=== PATIENT | female | born 1960 | race Caucasian/White ===

== ENCOUNTER 2017-04-25 18:54 | Emergency (ER) | payer BC ==
--- NOTE | 2017-04-25 19:15 | UC ---
Upper Extremity HPI - HPI Summary HPI Summary: 56 year female presents with complains of left arm swelling. I will send her to the ER to rule out PE. Yoselin called [facility] [place]. - History of Current Complaint Chief Complaint: UCUpperExtremity Stated Complaint: ARM INJURY Time Seen by Provider: 04/25/17 19:11 - Allergies/Home Medications Allergies/Adverse Reactions: Allergies Allergy/AdvReac Type Severity Reaction Status Date / Time Cephalexin [From Keflex] Allergy Unknown Unknown Verified 04/25/17 20:39 Reaction Details Penicillins Allergy Unknown Unknown Verified 04/25/17 20:39 Reaction Details enviromental Allergy Eyes Uncoded 04/25/17 20:39 Itchy/Swollen/Red/Watery PMH/Surg Hx/FS Hx/Imm Hx - Surgical History Surgical History: Yes Surgery Procedure, Year, and Place: TUBAL LIGATION - Family History Known Family History: Positive: Unknown, Other - brother - ceringomyeloma Negative: Cardiac Disease - /, Hypertension Family History: brother with Chiari MAlformation - Social History Alcohol Use: Occasionally Substance Use Type: None Substance Use Comment - Amount & Last Used: oxycodone Smoking Status (MU): Former Smoker Type: Cigarettes Amount Used/How Often: quit 15 years ago When Did the Patient Quit Smoking/Using Tobacco: 2000 Review of Systems Constitutional: Negative Skin: Negative Eyes: Negative ENT: Negative Respiratory: Negative Cardiovascular: Negative Gastrointestinal: Negative Genitourinary: Negative Motor: Negative Neurovascular: Negative Musculoskeletal: Other: - LEFT ARM SWELLING Neurological: Negative Psychological: Negative All Other Systems Reviewed And Are Negative: Yes Physical Exam Triage Information Reviewed: Yes Vital Signs: Initial Vital Signs Temp 36.4 C 04/25/17 18:56 Pulse 80 04/25/17 18:56 Resp 16 04/25/17 18:56 BP 145/93 04/25/17 18:56 Pulse Ox 98 04/25/17 18:56 Eye Exam: Normal ENT Exam: Normal Dental Exam: Normal Neck exam: Normal Neck: Positive: 1 Respiratory Exam: Normal Cardiovascular Exam: Normal Abdominal Exam: Normal Musculoskeletal: Positive: Other: - LEFT ARM SWELLING Neurological Exam: Normal Psychological Exam: Normal Skin Exam: Normal Upper Extremity Course/Dx - Differential Dx/Diagnosis Provider Diagnoses: LEFT ARM SWELLING Discharge - Discharge Plan Condition: Guarded Disposition: AGAINST MEDICAL ADVICE Patient Education Materials: Arm Pain (ED) Referrals: Petey Carrasquillo DO [Primary Care Provider] -
[2017-04-25 20:08] VITALS: BP 128/72
== END 2017-04-25 19:55 | disposition left against medical advice (07) ==
LOC: UCEAST 18:54
DX: M79.89 Other specified soft tissue disorders (principal); Z87.891 Personal history of nicotine dependence; Z88.0 Allergy status to penicillin
CPT/HCPCS: 99212; G0463

== ENCOUNTER 2017-04-25 20:15 | Emergency (ER) | payer BC ==
[2017-04-25 21:32] VITALS: BP 131/84
--- NOTE | 2017-04-25 23:34 | ED ---
Upper Extremity Pain - HPI Summary HPI Summary: Patient presents to ED after hyperextending the left arm a few hours ago and now is experiencing pain and slight swelling in the shoulder and right shoulder. Denies other pain. Patient is unable to rotate at the wrist or the shoulder. 9/10 pain, constant and does not radiate. Previous injury to the arm. Denies numbness, tingling, temperature or color changes to the area. - History of Current Complaint Chief Complaint: EDExtremityUpper Stated Complaint: XFER [facility] E[facility] Time Seen by Provider: 04/25/17 21:20 Hx Obtained From: Patient Mechanism Of Injury: Twisted Onset/Duration: Started Hours Ago Timing: Constant Severity Initially: Moderate Severity Currently: Moderate Character: Aching, Throbbing Aggravating Factor(s): Movement, Lifting, Flexion, Internal/External Rotation, Abduction Alleviating Factor(s): Nothing Associated Signs & Symptoms: Positive: Negative - Risk Factors Non-Orthopedic Risk Factor: Negative DVT Risk Factors: Negative Compartment Syndrome Risk Factors: Pain - Allergies/Home Medications Allergies/Adverse Reactions: Allergies Allergy/AdvReac Type Severity Reaction Status Date / Time Cephalexin [From Keflex] Allergy Unknown Unknown Verified 04/25/17 20:39 Reaction Details Penicillins Allergy Unknown Unknown Verified 04/25/17 20:39 Reaction Details enviromental Allergy Eyes Uncoded 04/25/17 20:39 Itchy/Swollen/Red/Watery PMH/Surg Hx/FS Hx/Imm Hx Previously Healthy: Yes Endocrine/Hematology History: Denies: Hx Diabetes Cardiovascular History: Denies: Hx Hypertension, Hx Pacemaker/ICD Respiratory History: Reports: Hx Asthma History: Denies: Hx Dialysis, Hx Renal Disease Sensory History: Denies: Hx Hearing Aid Neurological History: Reports: Other Neuro Impairments/Disorders - being treated for lesion on brain Psychiatric History: Denies: Hx Panic Disorder - Cancer History Hx Chemotherapy: No Hx Radiation Therapy: No - Surgical History Surgery Procedure, Year, and Place: TUBAL LIGATION - Immunization History Hx Pertussis Vaccination: No Immunizations Up to Date: Unable to Obtain/Confirm Infectious Disease History: No Infectious Disease History: Denies: Hx Clostridium Difficile, Hx Hepatitis, Hx Human Immunodeficiency Virus (HIV), Hx of Known/Suspected MRSA, Hx Shingles, Hx Tuberculosis, Hx Known/ Suspected VRE, Hx Known/Suspected VRSA, History Other Infectious Disease, Traveled Outside the [place] in Last 30 Days - Family History Known Family History: Positive: Unknown, Other - brother - ceringomyeloma Negative: Cardiac Disease - /, Hypertension Family History: brother with Chiari MAlformation - Social History Occupation: Employed Full-time Lives: With Family Alcohol Use: Rare Hx Substance Use: No Substance Use Type: Reports: None Substance Use Comment - Amount & Last Used: oxycodone Hx Tobacco Use: Yes Smoking Status (MU): Former Smoker Type: Cigarettes Amount Used/How Often: quit 15 years ago Review of Systems Constitutional: Negative Eyes: Negative Cardiovascular: Negative Respiratory: Negative Genitourinary: Negative Positive: no symptoms reported, see HPI Positive: Arthralgia Skin: Negative Neurological: Negative Psychological: Normal All Other Systems Reviewed And Are Negative: Yes Physical Exam Triage Information Reviewed: Yes Vital Signs On Initial Exam: Initial Vitals Temp Pulse Resp BP Pulse Ox 97.0 F 71 16 105/91 97 04/25/17 20:30 04/25/17 20:30 04/25/17 20:30 04/25/17 20:30 04/25/17 20:30 Vital Signs Reviewed: Yes Appearance: Positive: Well-Appearing, Well-Nourished Skin: Positive: Warm, Skin Color Reflects Adequate Perfusion Neck: Positive: Supple, No Lymphadenopathy Respiratory/Lung Sounds: Positive: Clear to Auscultation, Breath Sounds Present Cardiovascular: Positive: Normal, RRR, Pulses are Symmetrical in both Upper and Lower Extremities Musculoskeletal: Positive: Pain @ - left shoulder, left upper arm and left clavicle with pain on palpation Neurological: Positive: Normal, Sensory/Motor Intact, Alert, Oriented to Person Place, Time, Speech Normal Psychiatric: Positive: Normal AVPU Assessment: Alert - [place] Coma Scale Best Eye Response: 4 - Spontaneous Best Motor Response: 6 - Obeys Commands Best Verbal Response: 5 - Oriented Diagnostics - Vital Signs Vital Signs Temp Pulse Resp BP Pulse Ox 04/25/17 21:25 98.1 F 74 16 131/84 98 04/25/17 20:30 97.0 F 71 16 105/91 97 - Laboratory Lab Statement: Any lab studies that have been ordered have been reviewed, and results considered in the medical decision making process. Course/Dx - Course Course Of Treatment: left shoulder, left upper arm and left clavicle with pain on palpation. Xrays read by Dr. Hannah in the ED. Normal Xrays with no acute fx. Patient given orthopedic follow up in 5-7 days. Encouraged Ibuprofen 600mg three times daily with meals for pain. Return precautions given. Educated patient regarding arm injuries, healing time and the possibility of further evaluation and imaging as orthopedist sees fit. Sling given for patient. - Diagnoses Differential Diagnosis/HQI/PQRI: Positive: Fracture (Open), Fracture (Closed), Strain, Sprain Provider Diagnoses: Muscle strain Discharge - Discharge Plan Condition: Stable Disposition: HOME Patient Education Materials: Musculoskeletal Pain (ED) Referrals: Petey Carrasquillo DO [Primary Care Provider] - Additional Instructions: Ibuprofen 600mg three times daily for pain and inflammation Sling the arm until symptoms improve If anything gets worse, return to the ED immediately
--- NOTE | 2017-04-26 07:32 | RAD ---
HISTORY: Left shoulder injury COMPARISONS: June 25, 2016 VIEWS: 4, Frontal internal rotation, external rotation, outlet, and axillary views of the left shoulder FINDINGS: BONE DENSITY: Normal. BONES: There is no displaced fracture. JOINTS: There is no arthropathy. ALIGNMENT: There is no dislocation. SOFT TISSUES: Unremarkable. OTHER FINDINGS: None. IMPRESSION: NO ACUTE OSSEOUS INJURY. IF SYMPTOMS PERSIST, RECOMMEND REPEAT IMAGING.
--- NOTE | 2017-04-26 07:33 | RAD ---
HISTORY: Left arm injury COMPARISONS: January 16, 2016 VIEWS: 2, Frontal and lateral views of the left humerus FINDINGS: BONE DENSITY: Normal. BONES: There is no displaced fracture. JOINTS: There is no arthropathy. ALIGNMENT: There is no dislocation. SOFT TISSUES: Unremarkable. OTHER FINDINGS: None. IMPRESSION: NO ACUTE OSSEOUS INJURY. IF SYMPTOMS PERSIST, RECOMMEND REPEAT IMAGING.
--- NOTE | 2017-04-26 07:33 | RAD ---
HISTORY: Left shoulder injury COMPARISONS: None relevant VIEWS: 2, frontal and frontal oblique views of the left clavicle FINDINGS: BONE DENSITY: Normal. BONES: There is no displaced fracture. JOINTS: There is no arthropathy. ALIGNMENT: There is no dislocation. SOFT TISSUES: Unremarkable. OTHER FINDINGS: None. IMPRESSION: NO ACUTE OSSEOUS INJURY. IF SYMPTOMS PERSIST, RECOMMEND REPEAT IMAGING.
== END 2017-04-25 23:29 | disposition home or self-care (01) ==
LOC: ED 20:15
DX: S46.912A Strain of unspecified muscle, fascia and tendon at shoulder and upper arm level, left arm, initial encounter (principal); X58.XXXA Exposure to other specified factors, initial encounter; Y93.9 Activity, unspecified; Y92.9 Unspecified place or not applicable; J45.909 Unspecified asthma, uncomplicated; Z88.1 Allergy status to other antibiotic agents; Z88.0 Allergy status to penicillin; Z87.891 Personal history of nicotine dependence
CPT/HCPCS: 99282

== ENCOUNTER 2018-09-04 20:54 | Emergency (ER) | payer BC ==
[2018-09-04 21:02] VITALS: BP 143/85
--- NOTE | 2018-09-04 21:16 | UC ---
Shortness of Breath HPI - HPI Summary HPI Summary: C/O left upper back pain onset at 7 PM. Feels SOB due to pain with trying to take a deep breath. C/O possible bronchitis, but no coughing. No fevers - History of Current Complaint Chief Complaint: UCRespiratory Stated Complaint: SOB Time Seen by Provider: 09/04/18 21:10 Hx Obtained From: Patient Onset/Duration: Sudden Onset, Lasting Hours - 2, Still Present Current Severity: Moderate Aggrevating Factors: Deep Breaths Alleviating Factors: Nothing Associated Signs & Symptoms: Negative: Cough (Productive), Cough (Nonproductive) , Cough (Bloody Sputum), Wheezing, Chest Pain w/Cough, Diaphoresis, Nasal Congestion - Allergy/Home Medications Allergies/Adverse Reactions: Allergies Allergy/AdvReac Type Severity Reaction Status Date / Time cephalexin [From Keflex] Allergy Severe Anaphylatic Verified 09/04/18 21:03 Shock Penicillins Allergy Severe Anaphylatic Verified 09/04/18 21:03 Shock enviromental Allergy Eyes Uncoded 09/04/18 21:03 Itchy/Swollen/Red/Watery Home Medications: Home Medications Cholecalciferol TAB* [Vitamin D TAB*] 09/04/18 [History] PMH/Surg Hx/FS Hx/Imm Hx Previously Healthy: Yes - Surgical History Surgical History: Yes Surgery Procedure, Year, and Place: TUBAL LIGATION - Family History Known Family History: Positive: Cardiac Disease - /, Hypertension, Diabetes, Other - brother - ceringomyeloma Family History: brother with Chiari MAlformation - Social History Occupation: Disabled Lives: With Family Alcohol Use: None Substance Use Type: None Substance Use Comment - Amount & Last Used: oxycodone Smoking Status (MU): Former Smoker Type: Cigarettes Amount Used/How Often: quit 15 years ago When Did the Patient Quit Smoking/Using Tobacco: 2000 Review of Systems All Other Systems Reviewed And Are Negative: Yes Respiratory: Positive: Shortness Of Breath - unable to take a deep breath due to the pain Cardiovascular: Positive: Chest Pain - in the upper back on the left Musculoskeletal: Positive: Arthralgia - Left shoulder pain after fall 2016 Is Patient Immunocompromised?: No Physical Exam Triage Information Reviewed: Yes Appearance: Well-Appearing, Well-Nourished, Pain Distress - moderate Vital Signs: Initial Vital Signs Temp 96.5 F 09/04/18 20:58 Pulse 91 09/04/18 20:58 Resp 16 09/04/18 20:58 BP 143/85 09/04/18 20:58 Pulse Ox 98 09/04/18 20:58 Vital Signs Reviewed: Yes Eyes: Positive: Conjunctiva Clear ENT: Positive: Pharynx normal, TMs normal Neck exam: Normal Neck: Positive: Supple Respiratory: Positive: Lungs clear. Negative: Chest non-tender - Tenderness in the left upper back, rhomboids and lower trapezius, with palpable muscle knots. Cardiovascular Exam: Normal Musculoskeletal Exam: Normal Neurological Exam: Normal Psychological Exam: Normal Skin Exam: Normal Diagnostics - Radiology No standard instances Radiology Interpretation Completed By: ED Physician Summary of Radiographic Findings: No acute changes Shortness of Breath Dx - Differential Dx/Diagnosis Differential Diagnosis/HQI/PQRI: Bronchitis, Chest Wall Pain, COPD Exacerbation , Pneumonia Provider Diagnoses: Chest wall pain Discharge - Sign-Out/Discharge Documenting (check all that apply): Patient Departure All imaging exams completed and their final reports reviewed: No - Discharge Plan Condition: Stable Disposition: HOME Prescriptions: Cyclobenzaprine (NF) [Cyclobenzaprine 5 MG (NF)] 5 mg PO TID PRN #30 tab PRN Reason: Pain - Back Patient Education Materials: Muscle Spasm (ED), Cyclobenzaprine (By mouth) Referrals: Petey Carrasquillo DO [Primary Care Provider] - Additional Instructions: Hot packs might help. Doing massage over the knots with analgesic balm, like aspercreme or Icyhot. Dig into the knots which will hurt a lot but will help them to release. - Billing Disposition and Condition Condition: STABLE Disposition: Home
[2018-09-04] MEDS ORDERED: Cyclobenzaprine TAB* 10 MG PO ONE (21:42)
--- NOTE | 2018-09-05 08:56 | UC ---
- Progress Note Progress Note: X-ray chest report reviewed: Wet read consistent with no acute changes Final report is as follows: #. Findings of chronic obstructive pulmonary disease and emphysema without gross change. #. Suggestion of a potential irregularly margined nodule at the medial LEFT lung base. Further assessment with contrast-enhanced chest CT suggested. Results discussed with Nurse Oates at at [facility] 09/05/2018 8:24 AM EST As per the note Dr. Ordonez called and recommend follow-up CT scan for this patient. RN to please call the patient and send the records to the primary care doctor. Discharge - Sign-Out/Discharge Documenting (check all that apply): Post-Discharge Follow Up All imaging exams completed and their final reports reviewed: Yes - Discharge Plan Condition: Stable Disposition: HOME Prescriptions: Cyclobenzaprine (NF) [Cyclobenzaprine 5 MG (NF)] 5 mg PO TID PRN #30 tab PRN Reason: Pain - Back Patient Education Materials: Cyclobenzaprine (By mouth), Muscle Spasm (ED) Referrals: Petey Carrasquillo, [Primary Care Provider] - Additional Instructions: Hot packs might help. Doing massage over the knots with analgesic balm, like aspercreme or Icyhot. Dig into the knots which will hurt a lot but will help them to release. - Billing Disposition and Condition Condition: STABLE Disposition: Home
== END 2018-09-04 22:00 | disposition home or self-care (01) ==
LOC: UCEAST 20:54
DX: R07.89 Other chest pain (principal); M54.6 Pain in thoracic spine; R06.02 Shortness of breath; Z88.1 Allergy status to other antibiotic agents; Z88.0 Allergy status to penicillin; Z91.048 Other nonmedicinal substance allergy status; Z87.891 Personal history of nicotine dependence
CPT/HCPCS: 71046; 99212; A9270-GY; G0463

== ENCOUNTER 2019-09-17 17:03 | Emergency (ER) | payer BC, MEDICARE ==
[2019-09-17 17:09] VITALS: BP 136/78
[2019-09-17] MEDS ORDERED: DOXYcycline CAP(*) 100 MG PO ONE (17:19)
--- NOTE | 2019-09-17 17:26 | UC ---
General HPI - HPI Summary HPI Summary: Patient is a 59yo female presenting with c/o of tick bite on L lower back that she noticed earlier today. States her removed it but believes the head may still be attached. Patient is unsure of how long tick was attached but states "it was engorged." Patient also states concern for Lyme and states 5 of her family members have had it. - History of Current Complaint Chief Complaint: UCSkin Stated Complaint: TICK Hx Obtained From: Patient Current Severity: None Pain Intensity: 0 - Allergy/Home Medications Allergies/Adverse Reactions: Allergies Allergy/AdvReac Type Severity Reaction Status Date / Time cephalexin [From Keflex] Allergy Severe Anaphylatic Verified 09/17/19 17:09 Shock Penicillins Allergy Severe Anaphylatic Verified 09/17/19 17:09 Shock enviromental Allergy Eyes Uncoded 09/17/19 17:09 Itchy/Swollen/Red/Watery PMH/Surg Hx/FS Hx/Imm Hx Previously Healthy: Yes - Surgical History Surgical History: Yes Surgery Procedure, Year, and Place: tubal ligation - Family History Known Family History: Positive: Unknown, Cardiac Disease, Hypertension, Diabetes , Other - brother - ceringomyeloma Family History: brother with Chiari MAlformation - Social History Lives: With Family Alcohol Use: Rare Substance Use Type: None Substance Use Comment - Amount & Last Used: oxycodone Smoking Status (MU): Former Smoker Type: Cigarettes Amount Used/How Often: quit 15 years ago When Did the Patient Quit Smoking/Using Tobacco: 2000 Review of Systems All Other Systems Reviewed And Are Negative: No Constitutional: Positive: Negative Skin: Positive: Other - tick bite L lower back Respiratory: Positive: Negative Cardiovascular: Positive: Negative Gastrointestinal: Positive: Negative. Negative: Vomiting, Nausea Musculoskeletal: Positive: Negative Neurological: Positive: Negative Physical Exam Triage Information Reviewed: Yes Appearance: Well-Appearing, No Pain Distress, Well-Nourished Vital Signs: Initial Vital Signs Temp 97.3 F 09/17/19 17:06 Pulse 86 09/17/19 17:06 Resp 16 09/17/19 17:06 BP 136/78 09/17/19 17:06 Pulse Ox 98 09/17/19 17:06 Vital Signs Reviewed: Yes Eyes: Positive: Conjunctiva Clear ENT: Positive: Hearing grossly normal Neck: Positive: Supple Respiratory: Positive: No respiratory distress Neurological: Positive: Alert Psychological: Positive: Age Appropriate Behavior Skin: Positive: Other - 1cm round area of erythema noted on L lower back where tick was attached. no sign of infection. Course/Dx - Course Course Of Treatment: Discussed tick bite and Lyme disease with patient. She received one time dose of doxy for Lyme prophylaxis. Instructed to monitor bite for s/s of infection over the next few days and to monitor for rash over next few weeks. Patient voiced understanding and agreed with treatment plan. - Diagnoses Provider Diagnosis: Tick bite of lower back Discharge ED - Sign-Out/Discharge Documenting (check all that apply): Patient Departure All imaging exams completed and their final reports reviewed: No Studies - Discharge Plan Condition: Stable Disposition: HOME Patient Education Materials: Tick Bite (ED) Referrals: Petey Carrasquillo DO [Primary Care Provider] - If Needed Additional Instructions: As discussed, take the one-time dose of Doxycycline to prevent Lyme Disease. It is recommended that you take this with food to avoid stomach upset. No further treatment is required. Follow up with your PCP if you experience a rash where you were the tick bit you within the next month. Return or go to the emergency room if you experience fever, nausea and vomiting , or increasing redness, warmth, or drainage from the area. - Billing Disposition and Condition Condition: STABLE Disposition: Home
== END 2019-09-17 17:31 | disposition home or self-care (01) ==
LOC: UCEAST 17:03
DX: S30.860A Insect bite (nonvenomous) of lower back and pelvis, initial encounter (principal); Z88.0 Allergy status to penicillin; Z88.1 Allergy status to other antibiotic agents; Z91.09 Other allergy status, other than to drugs and biological substances; Z87.891 Personal history of nicotine dependence; W57.XXXA Bitten or stung by nonvenomous insect and other nonvenomous arthropods, initial encounter; Y92.9 Unspecified place or not applicable
CPT/HCPCS: 99212; A9270-GY; G0463